=== PATIENT | female | born 1955 | race American Indian/Alaskan Native ===

== ENCOUNTER 2017-09-24 08:27 | Day surgery (SDC) | payer MEDICAID ==
--- NOTE | 2017-09-24 09:32 | CP.SDSHP ---
Same Day Surgery H & P - History Proposed Procedure: colonoscopy - Previous Medical/Surgical History Pulmonary: Asthma, Emphysema/COPD - Allergies Allergies: Allergies No Known Allergies Allergy (Verified 09/24/17 09:06) - Date & Time Date: 09/24/17 Time: 09:32 Short Stay Discharge - Short Stay Discharge Admitting Diagnosis/Reason for Visit: ENCOUNTER FOR SCREENING FOR MALIGNANT NEOPLASM OF Disposition: HOME/ ROUTINE
[2017-09-24] MEDS ORDERED: Midazolam 2 MG/2 ML VIAL ONE (10:09)
[2017-09-24] MEDS ORDERED: Propofol 10 mg/ml Inj (20 ML) ONE (10:09)
[2017-09-24 10:53] VITALS: TEMP 98.3; O2SAT 95
[2017-09-24 11:39] VITALS: RESP 15
[2017-09-24 11:48] VITALS: BP 140/90; PULSE 76
== END 2017-09-24 11:45 | disposition home or self-care (01) ==
LOC: C.ENDO 08:27
PROVIDERS: ATTEND Colon & Rectal Surgery
DX: Z12.11 Encounter for screening for malignant neoplasm of colon (principal); J44.9 Chronic obstructive pulmonary disease, unspecified; E11.9 Type 2 diabetes mellitus without complications; E78.5 Hyperlipidemia, unspecified; I10 Essential (primary) hypertension; F17.200 Nicotine dependence, unspecified, uncomplicated; F12.90 Cannabis use, unspecified, uncomplicated; Q43.8 Other specified congenital malformations of intestine; K64.8 Other hemorrhoids; K63.5 Polyp of colon
CPT/HCPCS: 45380; 82948; 88305; J2250; J2704; J3010